=== PATIENT | male | born 1950 | race Caucasian/White ===

== ENCOUNTER 2021-07-05 17:42 | Inpatient (IN) | payer OTHER ==
--- OUTSIDE RECORDS SUMMARY | 2021-07-05 17:45 | XMS REPORT | Continuity of Care Document ---
:1950 Author Organization [facility] t Address [address] [place] [address] Care Team Providers Name Role Phone Unavailable Unavailable Unavailable Payers Payer Name Policy Type Policy Number Effective Date Expiration Date S ource Problems This patient has no known problems. Allergies, Adverse Reactions, Alerts Allergy Allergy Status Severity Reaction(s) Onset Inactive Treating Comm ents Source Name Type Date Date Clinician dexameth DA Active U 2018-06 [facility] 0-12 00:00: [address] STEROIDS DA Active U 2018-06 [facility] 0-11 00:00: [address] Medications This patient has no known medications. Procedures This patient has no known procedures. Results Test Description Test Time Test Comments Results Result Comments Source BASIC METABOLIC PANEL 2019-04-01 08:27:00 Test Item Value Reference Range Interpretation Comme nts SODIUM (test code = NA) 138 MMOL/L 137-145 N POTASSIUM (test code = K) 4.6 MMOL/L 3.5-5.1 N CHLORIDE (test code = CL) 102 MMOL/L 98-107 N CARBON DIOXIDE (test code = CO2) 27 MMOL/L 22-30 N GLUCOSE (test code = GLU) 157 MG/DL 74-106 H BLOOD UREA NITROGEN (test code = 20 MG/DL 9-20 N BUN) GLOMERULAR FILTRATION RATE (test 60 Reporting units: ml/min/1.73 code = GFR) m2 (Modified M DRD Formula)Referen ce Range: > or = 60 ml/min/1.7 3 m2 CREATININE (test code = CREAT) 1.20 MG/DL 0.66-1.25 N CALCIUM (test code = CA) 9.8 MG/DL 8.4-10.2 N LIPID PROFILE (CORONARY RISK)2019-04-01 08:27:00 Test Item Value Reference Range Interpretation Comments TRIGLYCERIDES (test 216 MG/DL TRIGLYCE RIDES code = TRIG) REFERENCE RANGE:Normal: < 150 mg/dLBorderline High: 150-199 mg/dLHi gh: 200-499 mg/dLVe ry High: >=500 mg/ dL CHOLESTEROL (test code 169 MG/DL <200 = CHOL) HDL CHOLESTEROL (test 27 MG/DL 40-59 L code = HDL) LIPOPROTEIN LDL (test 119 MG/DL 0-99 H code = LDL) OPTIMAL........ .<100 mg/dLNEAR OPTIMAL/ABOVE OPTIMAL........ .100-12 9 mg/dL BORDERLINE HIGH.........13 0-159 mg/dL HIGH.........16 0-189 mg/dL VERY HIGH...... ...>/= 190 mg/dL [id number] 08:27:00 Test Item Value Reference Range Interpretation Comments MAGNESIUM (test code = MAG) 2.1 MG/DL 1.6-2.3 N PROTHROMBIN [id number] 08:20:00 Test Item Value Reference Range Interpretation Comments PROTHROMBIN TIME 10.9 SECONDS 9.6-11.6 N PATIENT (test code = PTP) INTERNATIONAL NORMAL 1.0 0.8-1.1 N The INR is to be RATIO (test code = used only for INR) monitoring oral anticoagulantth erap y. INDICATION I NR VALUE ---- ---- ---- -------1. Prophylaxis, de ep venous thrombos is, including hig h risk surgery. 2.0 - 3.0 2. Prophylaxis, de ep venous thrombos is, hip surgery, treatment for d eep venous thrombosis or pulmonary prevention of systemic emboli sm in patients wit h valvular heart disease, atrial fibrillation, tissue heart va lve, or acute myocar dial infarction. 2.0 - 3 .0 3. Mechanical prosthesis hear t valves, recurrent syste rica embolism. 3.0 - 4.5 PTT [id number] 08:20:00 Test Item Value Reference Range Interpretation Comments PTT ACTIVATED (test code = APTT) 26.8 SECONDS 22.0-33.0 N BASIC METABOLIC [id number] 08:16:00 Test Item Value Reference Range Interpretation Comments SODIUM (test code = 138 MMOL/L 137-145 N NA) POTASSIUM (test code = 4.6 MMOL/L 3.5-5.1 N K) CHLORIDE (test code = 102 MMOL/L 98-107 N CL) CARBON DIOXIDE (test 27 MMOL/L 22-30 N code = CO2) GLUCOSE (test code = 157 MG/DL 74-106 H GLU) BLOOD UREA NITROGEN 20 MG/DL 9-20 N (test code = BUN) GLOMERULAR FILTRATION 60 Report ing units: RATE (test code = GFR) ml/mi n/1.73 m2 (Modified MDRD Formula)Referen ce Range: > or = 6 0 ml/min/1.73 m2 CREATININE (test code 1.20 MG/DL 0.66-1.25 N = CREAT) CALCIUM (test code = 9.8 MG/DL 8.4-10.2 N CA) LIPID PROFILE (CORONARY RISK)2019-04-01 08:16:00 Test Item Value Reference Range Interpretation Comments TRIGLYCERIDES (test 216 MG/DL TRIGLYCE RIDES code = TRIG) REFERENCE RANGE:Normal: < 150 mg/dLBorderline High: 150-199 mg/dLHi gh: 200-499 mg/dLVe ry High: >=500 mg/ dL CHOLESTEROL (test code 169 MG/DL <200 = CHOL) HDL CHOLESTEROL (test 27 MG/DL 40-59 L code = HDL) LIPOPROTEIN LDL (test MG/DL 0-99 code = LDL) [id number] 08:16:00 Test Item Value Reference Range Interpretation Comments MAGNESIUM (test code = MAG) 2.1 MG/DL 1.6-2.3 N BASIC METABOLIC [id number] 08:15:00 Test Item Value Reference Range Interpretation Comments SODIUM (test code = 138 MMOL/L 137-145 N NA) POTASSIUM (test code = 4.6 MMOL/L 3.5-5.1 N K) CHLORIDE (test code = 102 MMOL/L 98-107 N CL) CARBON DIOXIDE (test 27 MMOL/L 22-30 N code = CO2) GLUCOSE (test code = 157 MG/DL 74-106 H GLU) BLOOD UREA NITROGEN 20 MG/DL 9-20 N (test code = BUN) GLOMERULAR FILTRATION 60 Report ing units: RATE (test code = GFR) ml/mi n/1.73 m2 (Modified MDRD Formula)Referen ce Range: > or = 6 0 ml/min/1.73 m2 CREATININE (test code 1.20 MG/DL 0.66-1.25 N = CREAT) CALCIUM (test code = 9.8 MG/DL 8.4-10.2 N CA) LIPID PROFILE (CORONARY RISK)2019-04-01 08:15:00 Test Item Value Reference Range Interpretation Comments TRIGLYCERIDES (test 216 MG/DL TRIGLYCE RIDES code = TRIG) REFERENCE RANGE:Normal: < 150 mg/dLBorderline High: 150-199 mg/dLHi gh: 200-499 mg/dLVe ry High: >=500 mg/ dL CHOLESTEROL (test code 169 MG/DL <200 = CHOL) HDL CHOLESTEROL (test MG/DL 40-59 code = HDL) LIPOPROTEIN LDL (test MG/DL 0-99 code = LDL) [id number] 08:15:00 Test Item Value Reference Range Interpretation Comments MAGNESIUM (test code = MAG) MG/DL 1.6-2.3 BASIC METABOLIC [id number] 08:14:00 Test Item Value Reference Range Interpretation Comments SODIUM (test code = NA) 138 MMOL/L 137-145 N POTASSIUM (test code = K) 4.6 MMOL/L 3.5-5.1 N CHLORIDE (test code = CL) 102 MMOL/L 98-107 N CARBON DIOXIDE (test code = CO2) MMOL/L 22-30 GLUCOSE (test code = GLU) MG/DL 74-106 BLOOD UREA NITROGEN (test code = MG/DL 9-20 BUN) GLOMERULAR FILTRATION RATE (test code = GFR) CREATININE (test code = CREAT) MG/DL 0.66-1.25 CALCIUM (test code = CA) MG/DL 8.7-9.7 LIPID PROFILE (CORONARY RISK)2019-04-01 08:14:00 Test Item Value Reference Range Interpretation Comments TRIGLYCERIDES (test code = TRIG) MG/DL CHOLESTEROL (test code = CHOL) 169 MG/DL <200 HDL CHOLESTEROL (test code = HDL) MG/DL 40-59 LIPOPROTEIN LDL (test code = LDL) MG/DL 0-99 [id number] 08:14:00 Test Item Value Reference Range Interpretation Comments MAGNESIUM (test code = MAG) MG/DL 1.6-2.3 CBC W/AUTO [id number] 08:08:00 Test Item Value Reference Range Interpretation Comments WHITE BLOOD CELL (test code = 7.7 K/MM3 3.8-9.8 N WBC) RED BLOOD CELL (test code = 5.18 M/MM3 3.95-5.67 N RBC) HEMOGLOBIN (test code = HGB) 15.1 G/DL 12.4-16.7 N HEMATOCRIT (test code = HCT) 44.6 % 35.9-49.5 N MEAN CELL VOLUME (test code = 86 fL 81.7-96.1 N MCV) MEAN CELL HGB (test code = MCH) 29.2 pg 27.6-33.2 N MEAN CELL HGB CONCETRATION 33.9 % 32.9-35.5 N (test code = MCHC) RED CELL DISTRIBUTION WIDTH 13.0 % 12.1-15.2 N (test code = RDW) PLATELET COUNT (test code = 172 K/MM3 129-368 N PLT) MEAN PLATELET VOLUME (test code 11.1 fl 7.4-10.4 H = MPV) NEUTROPHIL % (test code = NT%) 72.5 % 43-75 N IMMATURE GRANULOCYTE % (test 0.4 % 0.0-2.0 N code = IG%) LYMPHOCYTE % (test code = LY%) 14.5 % 14-44 N MONOCYTE % (test code = MO%) 8.9 % 4-13 N EOSINOPHIL % (test code = EO%) 3.4 % 0-6 N BASOPHIL % (test code = BA%) 0.3 % 0-2 N NUCLEATED RBC % (test code = 0.0 % 0-1.0 N NRBC%) NEUTROPHIL # (test code = NT#) 5.62 K/mm3 2.0-7.6 N IMMATURE GRANULOCYTE # (test 0.03 x10 3/uL 0-0.03 N code = IG#) LYMPHOCYTE # (test code = LY#) 1.12 K/mm3 1.0-3.8 N MONOCYTE # (test code = MO#) 0.69 K/mm3 0.1-0.8 N EOSINOPHIL # (test code = EO#) 0.26 K/mm3 0.0-0.2 H BASOPHIL # (test code = BA#) 0.02 K/mm3 0.0-0.2 N NUCLEATED RBC # (test code = 0.00 K/mm3 0.0-0.1 N NRBC#)
[2021-07-05 18:39] LABS: Protime INR 0.99
[2021-07-05 18:43] LABS: Absolute Lymphocytes (CBC) 1.4 K/uL (0.7-4.9); Hematocrit 47.3 % (39.6-49.0); MPV 10.1 fL (7.6-11.3); RBC Red Blood Cell Count 5.74 M/uL (4.33-5.43)
[2021-07-05] MEDS ORDERED: METHYLPREDNISOLONE 125 MG INJ ONE (18:45)
[2021-07-05] MEDS ORDERED: FUROSEMIDE 20 MG/ 2ML VIAL ONE ×2 (18:45→19:41)
[2021-07-05] MEDS ORDERED: LEVALBUTEROL 1.25 MG/3 ML NEB ONE (18:45)
[2021-07-05] MEDS ORDERED: IPRATROPIUM BROM 0.5MG/2.5ML ONE (18:45)
[2021-07-05] MEDS ORDERED: NA CHLORIDE 0.9% 1,000 ML ONE (18:46)
[2021-07-05 19:00] LABS: Potassium 3.7 mmol/L (3.5-5.1)
[2021-07-05 19:04] LABS: Troponin High Sensitivity 120.3 pg/mL (<58.9)
[2021-07-05] MEDS ORDERED: ACETAMINOPHEN 500 MG TAB PO PRN (21:19)
[2021-07-05] MEDS ORDERED: ONDANSETRON 4 MG/2 ML VIAL IV PRN (21:19)
[2021-07-05] MEDS: INSULIN -REGULAR HUMAN 50 UNIT/0.5 ML ML SQ SCH (21:19)
[2021-07-05] MEDS ORDERED: INSULIN -REGULAR HUMAN 50 UNIT/0.5 ML ML ONE (21:58)
--- NOTE | 2021-07-05 22:14 | RAD REPORT ---
EXAM DESCRIPTION: RAD - Chest Single View - 07/05/2021 10:03 pm CLINICAL HISTORY: sob COMPARISON: No comparisonsNo comparisons FINDINGS: Lines: None. Lungs: Diffuse prominence of the pulmonary interstitium with alveolar airspace disease. Pleural: No significant pleural effusions or pneumothorax. Cardiac: Cardiomegaly. Sternotomy. Bones: No acute fractures. Other: IMPRESSION: Findings most consistent with moderate interstitial edema/congestive heart failure.
[2021-07-05] MEDS ORDERED: HYDRALAZINE HCL 20 MG/ML VIAL IV PRN (22:36)
--- NOTE | 2021-07-05 22:40 | P.HP ---
Certification for Inpatient Patient admitted to: Inpatient With expected LOS: <2 Midnights Patient will require the following post-hospital care: None Practitioner: I am a practitioner with admitting privileges, knowledge of patient current condition, hospital course, and medical plan of care. Services: Services provided to patient in accordance with Admission requirements found in Title 42 Section 412.3 of the Code of Federal Regulations Patient History Date of Service: 07/05/21 Reason for admission: CHF exacerbation History of Present Illness: Mr. Calabrese is a 70 yo M with CAD,HTN, HLD, DM who presents with a few weeks of SOB and AVALOS. He also reports orthopena and PND. Past two nights he has had to sleep sitting up in his recliner. He denies chest pain. WBC 11.5 BUN 23 Cr 1.34 GFR 53 Glu 230 troponin 120.30 BNP 8434 IMPRESSION: Findings most consistent with moderate interstitial edema/congestive heart failure. Allergies No Known Drug Allergies Allergy (Verified 07/05/21 18:11) Rash - Past Medical/Surgical History Diabetic: Yes -: HTN -: DM -: HLD -: CAD -: gout -: CABG -: bilateral knee surgery -: back surgery - Family History Family History: Reviewed- Non-Contributory - Social History Smoking Status: Current every day smoker Alcohol use: Yes CD- Drugs: No Caffeine use: Yes Place of Residence: Home Review of Systems 10-point ROS is otherwise unremarkable General: Unremarkable Eyes: Unremarkable ENT: Unremarkable Respiratory: Shortness of Breath, SOB with Excertion Cardiovascular: Orthopnea, Paroxysmal Noc. Dyspnea, As per HPI Gastrointestinal: Unremarkable Genitourinary: Unremarkable Musculoskeletal: Unremarkable Integumentary: Unremarkable Neurological: Unremarkable Lymphatics: Unremarkable Physical Examination - Physical Exam General: Alert, In no apparent distress HEENT: Atraumatic, PERRLA, Mucous membr. moist/pink, EOMI, Sclerae nonicteric Neck: Supple, 2+ carotid pulse no bruit, No LAD, Without JVD or thyroid abnormality Respiratory: Diminished, Crackles/rales Cardiovascular: Regular rate/rhythm, Normal S1 S2 Gastrointestinal: Normal bowel sounds, No tenderness Musculoskeletal: No tenderness Integumentary: No rashes Neurological: Normal speech, Normal strength at 5/5 x4 extr, Normal tone, Normal affect Lymphatics: No axilla or inguinal lymphadenopathy - Studies Laboratory Data (last 24 hrs) 07/05/21 18:20: Sodium 140, Potassium 3.7, BUN 23 H, Creatinine 1.34 H, Glucose 231 H, Lipase 218 07/05/21 18:20: PT 11.4, INR 0.99, APTT 25.7 07/05/21 18:20: WBC 11.50 H, Hgb 15.4, Hct 47.3, Plt Count 195 Assessment and Plan - Problems (Diagnosis) (1) CHF exacerbation Current Visit: Yes Status: Acute Qualifiers: Heart failure type: unspecified Qualified Code(s): I50.9 - Heart failure, unspecified (2) HTN (hypertension) Current Visit: Yes Status: Chronic Qualifiers: Hypertension type: primary hypertension Qualified Code(s): I10 - Essential (primary) hypertension (3) HLD (hyperlipidemia) Current Visit: Yes Status: Chronic Qualifiers: Hyperlipidemia type: unspecified Qualified Code(s): E78.5 - Hyperlipidemia, unspecified (4) T2DM (type 2 diabetes mellitus) Current Visit: Yes Status: Chronic Qualifiers: Diabetes mellitus medical terminologist insulin use: with nursing home use Diabetes mellitus complication status: with kidney complications Chronic kidney disease stage: stage 3 (moderate) Chronic kidney disease stage 3 subtype: stage 3a (GFR 45-59) (5) Gout Current Visit: Yes Status: Chronic Qualifiers: Gout site: unspecified site Gout etiology: unspecified cause Chronicity: chronic Presence of tophus: without tophus Qualified Code(s): M1A.9XX0 - Chronic gout, unspecified, without tophus (tophi) (6) CAD (coronary artery disease) Current Visit: Yes Status: Chronic Qualifiers: Coronary Disease-Associated Artery/Lesion type: bypass graft [place] vs. transplanted heart: [place] heart Associated angina: without angina Qualified Code(s): I25.810 - Atherosclerosis of coronary artery bypass graft(s) without angina pectoris - Plan cardiology consulted on tele, trend troponins, repeat EKG ECHO pending continue IV lasix daily weights, O2 as needed, low sodium diet sliding scale insulin and accuchecks, A1c pending reconcile and continue home medications DVT ppx Discharge Plan: Home Plan to discharge in: 48 Hours - Advance Directives Does patient have a Living Will: No Does patient have a Durable POA for Healthcare: No - Code Status/Comfort Care Code Status Assessed: Yes (full code ) Critical Care: No Time Spent Managing Pts Care (In Minutes): 70
[2021-07-06 03:47] LABS: Absolute Lymphocytes (CBC) 0.7 K/uL (0.7-4.9); Hematocrit 46.2 % (39.6-49.0); Lymphocytes % 6.4 % (15.3-44.8); MPV 9.9 fL (7.6-11.3); RBC Red Blood Cell Count 5.57 M/uL (4.33-5.43)
[2021-07-06 04:11] LABS: Albumin 3.5 g/dL (3.4-5.0); Bilirubin Total 0.6 mg/dL (0.2-1.0); Magnesium 2.1 mg/dL (1.8-2.4); Phosphorus 2.9 mg/dL (2.5-4.9); Potassium 3.9 mmol/L (3.5-5.1); Thyroid Stimulating Hormone 0.062 uIU/mL (0.360-3.740)
[2021-07-06] MEDS ORDERED: HYDRALAZINE HCL 20 MG/ML VIAL ONE ×2 (05:10→08:28)
[2021-07-06] MEDS ORDERED: cloNIDine HCL 0.1 MG TAB PO ONE (07:39)
[2021-07-06] MEDS ORDERED: cloNIDine HCL 0.1 MG TAB ONE (07:41)
[2021-07-06] MEDS: INSULIN -REGULAR HUMAN 50 UNIT/0.5 ML ML SQ SCH ×4 (08:00→20:47)
[2021-07-06] MEDS ORDERED: FUROSEMIDE 40 MG/4 ML VIAL ONE ×2 (08:28→17:04)
[2021-07-06] MEDS ORDERED: INSULIN -REGULAR HUMAN 50 UNIT/0.5 ML ML ONE ×4 (08:30→20:35)
[2021-07-06] MEDS ORDERED: ENOXAPARIN 40 MG/0.4 ML SQ ONE (08:30)
[2021-07-06] MEDS: HYDRALAZINE HCL 20 MG/ML VIAL IV PRN (08:30)
[2021-07-06] MEDS ORDERED: METOPROLOL TAR 50 MG TAB PO ONE (08:59)
[2021-07-06] MEDS: FUROSEMIDE 40 MG/4 ML VIAL IV SCH ×2 (09:00→17:00)
[2021-07-06] MEDS ORDERED: ENOXAPARIN 40 MG/0.4 ML SQ SCH (09:00)
[2021-07-06] MEDS ORDERED: METOPROLOL TAR 50 MG TAB ONE ×2 (09:35→20:34)
[2021-07-06] MEDS ORDERED: INFLUENZA VACCINE (for 6+ mo) 0.5 ML DOSE IMVAC ONE (14:00)
--- NOTE | 2021-07-06 15:33 | CON ---
Date of Consultation: 07/06/2021 Reason For Consultation: CHF exacerbation. History Of Present Illness: This is a 70-year-old male with history of coronary artery disease statu s post single-vessel bypass in 2016, hypertension, dyslipidemia, diabetes, presented with progressive shortness of breath on minimal exertion and became at rest along with orthopnea and lower extremity edema. Denies having any chest pain. There is no nausea or vomiting. He follows up with cardiologi st elsewhere. After diuresis with Lasix, he is feeling slightly better already. Past Medical History: As outlined above in HPI. Medications: Refer to reconciliation sheet for detailed list. Allergies: NO KNOWN DRUG ALLERGIES. Past Surgical History: Coronary artery bypass, single-vessel in 2016. Family History: No premature coronary artery disease or cancer. Social History: He is an active smoker. Does not drink or use any drugs. Review of Systems: All systems were reviewed and they were negative except as mentioned in HPI. Physical Examination: Vital Signs: Temperature is 97.6, pulse 96, breathing at 18, blood pressure is 169/95, saturating 96 %. General: A pleasant elderly male, in no apparent distress. Head and Neck: Pupils are equal and reactive to light. Intact eye movements. Mild JVD elevation. No cervical lymphadenopathy. Neck: Supple. Thyroid is not enlarged. Lungs: Crackles in both bases. Slight increased respiratory efforts. Heart: Irregular with no extra sounds. Abdomen: Soft, nontender. Bowel sounds positive. No organomegaly. No masses or hernia. No rigidi ty or tenderness. Extremities: 3+ pedal edema bilaterally. No clubbing, cyanosis. Intact pulses. Skin: No rash was noted. Neurologic: Alert, awake. No acute focal deficits appreciated. Investigations: His hemoglobin 5.7. His troponin is 117, highly sensitive troponin. Creatinine is 1.4. NT-proBNP is 8434. Assessment And Recommendation: 1.Acute congestive heart failure exacerbation. Recommend IV Lasix 40 mg q.12 hours. Monitor BUN, c reatinine, electrolytes, and continue to trend troponin and please obtain echocardiogram. 2.Coronary artery disease, single-vessel bypass, now with heart failure. Obtain echo to see if ther e is any wall motion abnormalities and the patient has slightly elevated troponin which could be due to demand. If the echo showing any wall motion abnormalities, then ischemic workup will be warranted and we will plan for coronary angiogram at that time. 3.Hypertension. Please use his home medication to get his blood pressure under control and to reduc e the cardiac afterload. SR/MODL Voice ID: [id number] Report ID: [id number]
[2021-07-06] MEDS: METOPROLOL TAR 25 MG TAB PO SCH (18:00)
[2021-07-06] MEDS ORDERED: ENOXAPARIN 100 MG/ML SYR SQ ONE (20:34)
[2021-07-06] MEDS ORDERED: ENOXAPARIN 100 MG/ML SYR SQ SCH (21:00)
--- NOTE | 2021-07-06 22:51 | ER ---
Nurse's Notes [facility] Name: Balbir Calabrese Age: 70 yrs Sex: Male : 1950 Arrival Date: 07/05/2021 Time: 21:31 Bed 5 Private MD: Diagnosis: Acute on chronic combined systolic (congestive) and diastolic (congestive) heart failure Presentation: 07/05 18:00 Acuity: ARY 3 iw ED Course: 21:31 Patient arrived in ED. 21:34 Hari Borrego MD is Attending Physician. 7 21:38 Rosalba Pak MD is Hospitalizing Provider. 22:53 Imani Harvey, RN is Primary Nurse. 07/06 03:58 CORONAVIRUS Sent. kj1 07:36 Triage completed. iw 09:48 Changed dressing on right antecubital ;shaved the area. mb4 09:48 Verbal reassurance given. Assisted with dressing. mb4 Administered Medications: No medications were administered Outcome: 07/05 21:38 Decision to Hospitalize by Provider. 07/06 22:51 Patient left the ED. mw2 Signatures: Imani Harvey, RN RN Marielle Calabrese, RN RN Mamie Willis mw2 Libby Robles mb4 Maggy Harrison kj1 Gautam Tabares MD MD 7 Vinita Roach
[2021-07-06 23:12] VITALS: BMI 33.0
--- NOTE | 2021-07-06 23:54 | P.PN ---
Date of Service: 07/06/21 Subjective Patient's blood pressure is better controlled. Patient's heart rate is improved Physical Examination - Physical Exam General: Alert, In no apparent distress Respiratory: Diminished, Crackles/rales Cardiovascular: Regular rate/rhythm, Normal S1 S2 Gastrointestinal: Normal bowel sounds, No tenderness Neurological: Normal speech, Normal strength at 5/5 x4 extr, Normal tone, Normal affect Assessment and Plan - Problems (Diagnosis) (1) CHF exacerbation Current Visit: Yes Status: Acute Qualifiers: Heart failure type: unspecified Qualified Code(s): I50.9 - Heart failure, unspecified (2) HTN (hypertension) Current Visit: Yes Status: Chronic Qualifiers: Hypertension type: primary hypertension Qualified Code(s): I10 - Essential (primary) hypertension (3) HLD (hyperlipidemia) Current Visit: Yes Status: Chronic Qualifiers: Hyperlipidemia type: unspecified Qualified Code(s): E78.5 - Hyperlipidemia, unspecified (4) T2DM (type 2 diabetes mellitus) Current Visit: Yes Status: Chronic Qualifiers: Diabetes mellitus retirement insulin use: with retirement use Diabetes mellitus complication status: with kidney complications Chronic kidney disease stage: stage 3 (moderate) Chronic kidney disease stage 3 subtype: stage 3a (GFR 45-59) (5) Gout Current Visit: Yes Status: Chronic Qualifiers: Gout site: unspecified site Gout etiology: unspecified cause Chronicity: chronic Presence of tophus: without tophus Qualified Code(s): M1A.9XX0 - Chronic gout, unspecified, without tophus (tophi) (6) CAD (coronary artery disease) Current Visit: Yes Status: Chronic Qualifiers: Coronary Disease-Associated Artery/Lesion type: bypass graft [place] vs. transplanted heart: [place] heart Associated angina: without angina Qualified Code(s): I25.810 - Atherosclerosis of coronary artery bypass graft(s) without angina pectoris - Plan cardiology consulted on tele, trend troponins, repeat EKG ECHO pending continue IV lasix daily weights, O2 as needed, low sodium diet sliding scale insulin and accuchecks, A1c pending reconcile and continue home medications DVT ppx
[2021-07-07] MEDS: METOPROLOL TAR 25 MG TAB PO SCH (05:04)
[2021-07-07] MEDS: INSULIN -REGULAR HUMAN 50 UNIT/0.5 ML ML SQ SCH ×3 (08:33→15:56)
[2021-07-07] MEDS: FUROSEMIDE 40 MG/4 ML VIAL IV SCH (08:34)
[2021-07-07] MEDS ORDERED: APIXABAN 5 MG TABLET PO SCH (09:00)
[2021-07-07] MEDS ORDERED: SERTRALINE HCL 50 MG TAB PO SCH (09:00)
[2021-07-07] MEDS ORDERED: allopurinoL 100 MG TAB PO SCH (09:00)
[2021-07-07] MEDS ORDERED: ASPIRIN EC 81 MG TAB PO SCH (09:00)
--- NOTE | 2021-07-07 09:19 | RAD REPORT ---
EXAM DESCRIPTION: RAD - Chest Single View - 07/07/2021 9:03 am CLINICAL HISTORY: follow up CHF COMPARISON: Chest Single View dated 07/05/2021 FINDINGS: Lines: None. Lungs: No evidence of edema or pneumonia. Improved aeration compared with 07/05/2021. Pleural: No significant pleural effusions or pneumothorax. Cardiac: Cardiomegaly. Bones: No acute fractures. Sternotomy. Other: IMPRESSION: Edema has improved since 07/05/2021.
--- NOTE | 2021-07-07 09:37 | RAD REPORT ---
EXAM DESCRIPTION: CT - Head Brain Wo Cont - 07/07/2021 9:17 am CLINICAL HISTORY: dizziness COMPARISON: No comparisons TECHNIQUE: All CT scans are performed using dose optimization technique as appropriate and may inclu de automated exposure control or mA/KV adjustment according to patient size. FINDINGS: No intracranial hemorrhage, hydrocephalus or extra-axial fluid collection.No areas of brai n edema or evidence of midline shift. Trace left mastoid fluid. The calvarium is intact. Chronic small vessel ischemic changes. IMPRESSION: No acute intracranial abnormality.
[2021-07-07 09:40] VITALS: O2SAT 98
[2021-07-07] MEDS: HYDRALAZINE HCL 20 MG/ML VIAL IV PRN (11:58)
--- NOTE | 2021-07-07 13:55 | P.DS ---
Admission Date: 07/05/21 Discharge Date: 07/07/21 Primary Care Provider: Dr. Brooke Zazueta; Cardiology-Dr. Begum Disposition: DC HOME/HOME HEALTH CARE Discharge Condition: GOOD Reason for Admission: CHF exacerbation Consultations: Cardiology-Dr. Schneider Procedures: COVID: Negative Initial CXR: COMPARISON: No comparisonsNo comparisons FINDINGS: Lines: None. Lungs: Diffuse prominence of the pulmonary interstitium with alveolar airspace disease. Pleural: No significant pleural effusions or pneumothorax. Cardiac: Cardiomegaly. Sternotomy. Bones: No acute fractures. IMPRESSION: Findings most consistent with moderate interstitial edema/congestive heart failure. Follow up CXR: COMPARISON: Chest Single View dated 07/05/2021 FINDINGS: Lines: None. Lungs: No evidence of edema or pneumonia. Improved aeration compared with 07/05/2021. Pleural: No significant pleural effusions or pneumothorax. Cardiac: Cardiomegaly. Bones: No acute fractures. Sternotomy. IMPRESSION: Edema has improved since 07/05/2021. CT Head: COMPARISON: No comparisons TECHNIQUE: All CT scans are performed using dose optimization technique as appropriate and may include automated exposure control or mA/KV adjustment according to patient size. FINDINGS: No intracranial hemorrhage, hydrocephalus or extra-axial fluid collection.No areas of brain edema or evidence of midline shift. Trace left mastoid fluid. The calvarium is intact. Chronic small vessel ischemic changes. IMPRESSION: No acute intracranial abnormality. Medical Problem List: Dyspnea secondary to acute on chronic diastolic CHF Atrial fibrillation Elevated troponin likely ischemic demand related to CHF Hypertension Diabetes mellitus type 2 Chronic renal disease stage III Dizziness Depression BPH Brief History of Present Illness: 89-year-old male with history of CAD, prior CABG, hypertension, diabetes mellitus. Patient reported increasing shortness of breath and orthopnea. Patient found to have acute CHF. Patient was admitted for treatment. Hospital Course: Patient presented with dyspnea secondary to acute on chronic diastolic CHF. Patient also found to have atrial fibrillation. Patient was admitted for treatment. Patient received IV diuretic therapy with improvement. Medication adjusted. Metoprolol was increased for better rate control. Patient converted to normal sinus rhythm. Patient seen and evaluated by cardiology. No further intervention required. Patient has done well with diuresis. Patient with history of CAD and prior CABG, hypertension and diabetes. At discharge patient without significant shortness of breath. Patient no longer on oxygen. At discharge patient will continue with a 1500 cc/day fluid restriction and low- salt diet. Recommend to monitor his weight daily. Recommend to continue Lasix 40 mg 1 pill twice daily. If his weight increases by more than 5 pounds further adjustment may be required. As he improves the Lasix can be decreased as well. This can be done with the help of his patient financial counselor or his PCP. Recommend to recheck labBMP in 1 week to monitor his progress. Recommend follow-up with PCP in 1 week to follow-up this hospitalization. Recommend follow-up with cardiology in 1 week to follow-up his hospitalization as well. As mentioned above patient had atrial fibrillation. This improved with better rate control. Patient now in normal sinus rhythm. Metoprolol was adjusted. Patient now on anticoagulation therapy. Cardiology recommends to continue metoprolol 50 mg 1 pill twice daily. Patient will also continue with Eliquis 5 mg 1 pill twice daily for chronic anticoagulation therapy. Education on atrial fibrillation, Eliquis provided. Recommend follow-up with cardiology in 1 week to follow-up his hospitalization. Patient with hypertension. Medications have been adjusted for better blood pressure control. At discharge the patient will continue with metoprolol 50 mg 1 pill twice daily. Recommend to maintain blood pressure less than 130/80. Further testing can be done by his PCP. Patient with diabetes mellitus type 2. Overall stable. At discharge patient will continue with his insulin regimen of Lantus 38 units subcu daily. Recommend to monitor blood sugars at least twice daily. Recommend to maintain blood sugar less than 140 fasting and less than 200 after meals. Further dosing can be done by his PCP. Recommend to recheck hemoglobin A1c every 3 months to monitor his progress. Recommend follow-up with PCP to further monitor and address. Patient with depression. At discharge patient will continue with Zoloft 25 mg daily. Patient with BPH. At discharge patient will continue with Flomax 0.4 mg daily. Patient with history of CAD and prior CABG. At discharge patient will continue with aspirin 81 mg daily. As noted above patient will also be on Eliquis. Monitor for any bleeding. Education on Eliquis provided. Fall precautions in place. CT head performed due to dizziness. CT head unremarkable. Patient was seen by neurology. No further intervention required. No need for further intervention at this time. Recommend to discontinue muscle relaxers as this may be contributing to his dizziness. Vital Signs/Physical Exam: Temp Pulse Resp BP Pulse Ox 95 F L 46 L 19 145/83 H 97 07/07/21 08:00 07/07/21 08:00 07/07/21 08:00 07/07/21 08:00 07/07/21 08:00 General: Alert, In no apparent distress, Oriented x3, Cooperative HEENT: Atraumatic Neck: Supple Respiratory: Clear to auscultation bilaterally, Normal air movement Cardiovascular: Normal pulses, Regular rate/rhythm Gastrointestinal: Normal bowel sounds, No tenderness, No masses, No rebound, No guarding Musculoskeletal: No erythema, No tenderness, No warmth Integumentary: No tenderness/swelling, No erythema, No warmth, No cyanosis Neurological: Normal speech, Normal strength at 5/5 x4 extr, Normal tone, Normal affect Laboratory Data at Discharge: WBC 11.20 K/uL (4.3-10.9) H 07/06/21 03:17 Hgb 15.1 g/dL (13.6-17.9) 07/06/21 03:17 Hct 46.2 % (39.6-49.0) 07/06/21 03:17 Plt Count 174 K/uL (152-406) 07/06/21 03:17 PT 11.4 SECONDS (9.5-12.5) 07/05/21 18:20 INR 0.99 07/05/21 18:20 APTT 25.7 SECONDS (24.3-36.9) 07/05/21 18:20 Sodium 139 mmol/L (136-145) 07/06/21 03:17 Potassium 3.9 mmol/L (3.5-5.1) 07/06/21 03:17 BUN 26 mg/dL (7-18) H 07/06/21 03:17 Creatinine 1.41 mg/dL (0.55-1.3) H 07/06/21 03:17 Glucose 260 mg/dL (74-106) H 07/06/21 03:17 Phosphorus 2.9 mg/dL (2.5-4.9) 07/06/21 03:17 Magnesium 2.1 mg/dL (1.8-2.4) 07/06/21 03:17 Total Bilirubin 0.6 mg/dL (0.2-1.0) 07/06/21 03:17 AST 27 U/L (15-37) 07/06/21 03:17 ALT 36 U/L (12-78) 07/06/21 03:17 Alkaline Phosphatase 93 U/L (45-117) 07/06/21 03:17 Triglycerides 86 mg/dL (<150) 07/06/21 03:17 Cholesterol 185 mg/dL (<200) 07/06/21 03:17 HDL Cholesterol 43 mg/dL (40-60) 07/06/21 03:17 Cholesterol/HDL Ratio 4.30 07/06/21 03:17 Lipase 218 U/L (73-393) 07/05/21 18:20 Home Medications: Aspirin [Aspirin EC 81 MG] 81 mg PO DAILY 07/06/21 Insulin Glargine,Hum.rec.anlog [Lantus] 38 unit SQ BEDTIME 07/06/21 Sertraline [Zoloft*] 25 mg PO DAILY 07/06/21 Tamsulosin [Flomax*] 0.4 mg PO BEDTIME 07/06/21 allopurinoL [Allopurinol] 100 mg PO DAILY 07/06/21 Apixaban [Eliquis] 5 mg PO BID #60 tablet 07/07/21 Furosemide [Lasix] 40 mg PO BIDL #60 tab 07/07/21 Metoprolol Tartrate 50 mg PO BID #60 tablet 07/07/21 New Medications: Apixaban [Eliquis] 5 mg PO BID #60 tablet Furosemide [Lasix] 40 mg PO BIDL #60 tab Metoprolol Tartrate 50 mg PO BID #60 tablet Physician Discharge Instructions: Patient presented with dyspnea secondary to acute on chronic diastolic CHF. Patient also found to have atrial fibrillation. Patient was admitted for treatment. Patient received IV diuretic therapy with improvement. Medication adjusted. Metoprolol was increased for better rate control. Patient converted to normal sinus rhythm. Patient seen and evaluated by cardiology. No further intervention required. Patient has done well with diuresis. Patient with history of CAD and prior CABG, hypertension and diabetes. At discharge patient without significant shortness of breath. Patient no longer on oxygen. At dis charge patient will continue with a 1500 cc/day fluid restriction and low-salt diet. Recommend to monitor his weight daily. Recommend to continue Lasix 40 mg 1 pill twice daily. If his weight increases by more than 5 pounds further adjustment may be required. As he improves the Lasix can be decreased as well. This can be done with the help of his patient financial counselor or his PCP. Recommend to recheck labBMP in 1 week to monitor his progress. Recommend follow-up with PCP in 1 week to follow-up this hospitalization. Recommend follow-up with cardiology in 1 week to follow-up his hospitalization as well. As mentioned above patient had atrial fibrillation. This improved with better rate control. Patient now in normal sinus rhythm. Metoprolol was adjusted. Patient now on anticoagulation therapy. Cardiology recommends to continue metoprolol 50 mg 1 pill twice daily. Patient will also continue with Eliquis 5 mg 1 pill twice daily for chronic anticoagulation therapy. Education on atrial fibrillation, Eliquis provided. Recommend follow-up with cardiology in 1 week to follow-up his hospitalization. Patient with hypertension. Medications have been adjusted for better blood pressure control. At discharge the patient will continue with metoprolol 50 mg 1 pill twice daily. Recommend to maintain blood pressure less than 130/80. Further testing can be done by his PCP. Patient with diabetes mellitus type 2. Overall stable. At discharge patient will continue with his insulin regimen of Lantus 38 units subcu daily. Recommend to monitor blood sugars at least twice daily. Recommend to maintain blood sugar less than 140 fasting and less than 200 after meals. Further dosing can be done by his PCP. Recommend to recheck hemoglobin A1c every 3 months to monitor his progress. Recommend follow-up with PCP to further monitor and address. Patient with depression. At discharge patient will continue with Zoloft 25 mg daily. Patient with BPH. At discharge patient will continue with Flomax 0.4 mg daily. Patient with history of CAD and prior CABG. At discharge patient will continue with aspirin 81 mg daily. As noted above patient will also be on Eliquis. Monitor for any bleeding. Education on Eliquis provided. Fall precautions in place. CT head performed due to dizziness. CT head unremarkable. Patient was seen by neurology. No further intervention required. No need for further intervention at this time. Recommend to discontinue muscle relaxers as this may be contributing to his dizziness. Diet: AHA Activity: Ad rosy Followup: Brooke Collier MD [Primary Care Provider] - Time spent managing pt's care (in minutes): 55
[2021-07-07] MEDS ORDERED: MECLIZINE HCL 12.5 MG TAB PO PRN (14:37)
[2021-07-07 15:51] LABS: Urine Appearance CLOUDY (Clear); Urine Bilirubin NEGATIVE (Negative); Urine Blood 3+ (Negative); Urine Color DK YELLOW (Yellow); Urine Glucose NEGATIVE (Negative); Urine Protein 1+ (Negative); Urine Specific Gravity 1.015 (1.005-1.030); Urine Urobilinogen 0.2 mg/dL (0.2-1.0); Urine pH 5.5 (5.0-7.0)
[2021-07-07 16:02] LABS: Urine Microscopic Reflex ORDER UMIC
[2021-07-07 16:43] LABS: Urine Amorphous Sediment 3+ /HPF (NONE SEEN); Urine Bacteria 20-50 /HPF (NONE SEEN); Urine Mucus 3+ /HPF (NONE SEEN); Urine RBC >50 /HPF (NONE SEEN)
[2021-07-07 17:21] VITALS: BP 144/74; TEMP 98.1
--- NOTE | 2021-07-07 20:30 | CON ---
Reason For Consultation: Consultation called by Dr. Brown because of vertigo. History Of Present Illness: Mr. Calabrese is a 70-year-old right-handed patient with ghotra ry artery disease, hypertension, dyslipidemia, diabetes mellitus, congestive heart failure, who comes to [facility] with shortness of breath and dyspnea on exertion, orthopnea, and nocturnal dy spnea. He had more difficulty sleeping at night, had to be upright due to his feeling of being smoth ered. The [facility] imaging did show moderate interstitial edema with congestive heart emily lure pattern, was treated with diuretics that had improved. Regarding his neurological consultation reason, the patient has had episodes of vertigo when turning sometimes to the left, the world seemed to go from left to right and when ambulating with such good vertigo, might tend to fall to the left s ruby. Also may become nauseated with a tendency to vomit. Episodes seemed to subside slightly, if he remains very still. He denies a history of stroke, seizures, or any head trauma with loss of consci ousness. He has had CT scan that showed chronic small-vessel ischemic changes without acute intracra nial abnormalities. Laboratory Studies: Showed a slightly elevated white blood cell count of 11.5 with 90% neutrophils. INR unremarkable. Chemistries showed glucose ranged from 123 to 240, otherwise, did have elevated t roponin's. Liver function studies normal. Creatinine 1.41. Hemoglobin A1c 6.4. His urinalysis vladislav ws greater than 50 red blood cells, white blood cells 5 to 10, bacteria 10 to 20, 3+ mucus, 3+ blood, trace esterase. COVID-19 testing is negative. Chest x-ray from today shows the edema has improved from 07/05 and this is where the CHF pattern was seen. He did receive Lasix 40 mg IV b.i.d., Eliquis 5 mg twice daily along with aspirin 80 mg daily, and meclizine 25 mg every 6 hours. He is also on F shira. The patient was to ambulate with physical therapy, however, not done at this point. He may also have the Melissa maneuver performed by Physical Therapy. Past Medical History: As noted including gout. Past Surgical History: Coronary artery bypass grafting, bilateral knee surgery, back surgery. Family History: Noncontributory. Allergies: NO KNOWN DRUG ALLERGIES. Social History: Patient smokes on a daily basis and drinks alcohol regularly, also caffeinated bever ages. Denies illegal drugs. Review of Systems: As noted, he has some vertigo and some occasional shortness of breath and easy fatigue and with ortho pnea, dyspnea on exertion as well, otherwise, negative 10 point systems review. Physical Examination: Vital Signs: Blood pressure 145/83, pulse 46 to 96, temperature 96.7, blood pressure 145/83, oxygen saturation 98% on room air. Weight 243 pounds. [place] 6 feet. BMI 33. Vital Signs: Mr. Calabrese is resting in bed. He is in no significant distress. HEENT: He is normocephalic, atraumatic. Sclerae appeared anicteric. Oropharynx is moist and pink. Neck: Supple. Chest: Clear. Abdomen: Soft and obese. Extremities: No significant edema or cyanosis. Neurological: No focal deficits. He is slightly slow to respond, but he is appropriate, otherwise. Cranial Nerves: His motor and sensory exam showed no focal deficits. His gait, he will be ambulated with physical therapy. Assessment: Mr. Calabrese is a 70-year-old patient with benign paroxysmal positional vertigo. He has multiple comorbid conditions as noted above. Plan: 1.To perform the Melissa maneuver as appropriate. 2.Meclizine 25 mg every 8 hours as needed. 3.Continue with aggressive management of his risk factors for stroke and myocardial infarction. 4.He will likely benefit from having Melissa maneuver as needed as done by Physical Therapy. 5.May be discharged to home and follow up in Dr. Brown' clinic 1 month later. BECCA/TIANA Voice ID: [id number] Report ID: [id number]
[2021-07-07] MEDS ORDERED: TAMSULOSIN 0.4 MG SR CAP PO SCH (21:00)
--- NOTE | 2021-07-08 08:26 | ECHO ---
HEIGHT: 6 ft 0 in WEIGHT: 243 lb 9.6 oz DATE OF STUDY: 07/07/[address]: Misael Mahan 2-DIMENSIONAL: YES M.MODE: YES DOPPLER: YES COLOR FLOW: YES TDS: PORTABLE: DEFINITY: BUBBLE STUDY: DIAGNOSIS: CONGESTIVE HEART FAILURE CARDIAC HISTORY: CATHERIZATION: SURGERY: PROSTHETIC VALVE: PACEMAKER: MEASUREMENTS (cm) DIASTOLIC (NORMALS) SYSTOLIC (NORMALS) IVSd 1.1 (0.6-1.2) LA Diam 4.0 (1.9-4.0) LVEF 32% LVIDd 5.6 (3.5-5.7) LVIDs 4.8 (2.0-3.5) %FS 15% LVPWd 1.1 (0.6-1.2) Ao Diam 3.4 (2.0-3.7) 2 DIMENSIONAL ASSESSMENT: RIGHT ATRIUM: NORMAL LEFT ATRIUM: ENLARGED RIGHT VENTRICLE: NORMAL LEFT VENTRICLE: DEPRESSED TRICUSPID VALVE: MILD TRICUSPID REGURGITATION MITRAL VALVE: MILD MITRAL REGURGITATION PULMONIC VALVE: NORMAL AORTIC VALVE: NORMAL PERICARDIAL EFFUSION: NONE AORTIC ROOT: NORMAL LEFT VENTRICULAR WALL MOTION: MODERATE GLOBAL HYPOKINESIS DOPPLER/COLOR FLOW: SEE BELOW COMMENTS: MODERATELY DEPRESSED LEFT VENTRICULAR EJECTION FRACTION AT 30-35%. MODERATE GLOBAL HYPOKINESIS. MILD MITRAL REGURGITATION. MILD TRICUSPID REGURGITATION. LEFT ATRIAL ENLARGEMENT. TECHNOLOGIST: CAROLYN GRAFF
--- NOTE | 2021-07-09 07:35 | EKG ---
Test Date: 2021-07-05 Test Time: 18:01:23 Computer Systems Software Engineer: TARA MEASUREMENT RESULTS: Intervals: Rate: 95 NH: 174 QRSD: 110 QT: 394 QTc: 495 [place]: P: 18 NH: 174 QRS: 126 T: 44 INTERPRETIVE STATEMENTS: Sinus rhythm with premature atrial complexes Right axis deviation Cannot rule out Anterior infarct, age undetermined Abnormal ECG No previous ECG available for comparison Electronically Signed On 07-09-21 07:27:08 DIPLOMATIC OFFICER by Thony Schneider
== END 2021-07-07 17:38 | disposition home or self-care (01) | DRG 291 ==
LOC: ER 17:42 → ERHOLD 21:29 → 2ND 07-06 20:46
PROVIDERS: ADMIT Hospitalist; ATTEND Physician Assistant
DX: I13.0 Hypertensive heart and chronic kidney disease with heart failure and stage 1 through stage 4 chronic kidney disease, or unspecified chronic kidney disease (principal); I50.33 Acute on chronic diastolic (congestive) heart failure; N39.0 Urinary tract infection, site not specified; I24.8 Other forms of acute ischemic heart disease; N18.31 Chronic kidney disease, stage 3a; E11.22 Type 2 diabetes mellitus with diabetic chronic kidney disease; E78.5 Hyperlipidemia, unspecified; M1A.9XX0 Chronic gout, unspecified, without tophus (tophi); I25.10 Atherosclerotic heart disease of native coronary artery without angina pectoris; H81.10 Benign paroxysmal vertigo, unspecified ear; I48.91 Unspecified atrial fibrillation; N40.0 Benign prostatic hyperplasia without lower urinary tract symptoms; Z79.4 Long term (current) use of insulin; Z95.1 Presence of aortocoronary bypass graft; Z20.822 Contact with and (suspected) exposure to COVID-19
CPT/HCPCS: 36415; 70450; 71045; 80048; 80053; 80061; 81003; 81015; 82947; 83036; 83690; 83735; 83880; 84100; 84439; 84443; 84484; 85025; 85610; 85730; 87040; 87086; 87088; 93005; 93306; 94760; 99283; J0360; J1650; J1940; J2405; J2930; J7030; J8597; U0003

== ENCOUNTER 2021-11-11 23:08 | Observation (INO) | payer OTHER ==
--- OUTSIDE RECORDS SUMMARY | 2021-11-11 23:11 | XMS REPORT | Continuity of Care Document ---
:1950 Author Organization [facility] t Address [address] [place] [address] Care Team Providers Name Role Phone ANTHONY_Brigida Attending Clinician Unavailable Helga Collier Attending Clinician [phone] ANTHONY_Brigida Admitting Clinician Unavailable Payers Payer Name Policy Type Policy Number Effective Date Expiration Date S ource MEDICARE [place]: [id number] 2015 [employer] 00:00:00 [place] [id number] 2015 00:00:00 Problems This patient has no known problems. Allergies, Adverse Reactions, Alerts Allergy Allergy Status Severity Reaction(s) Onset Inactive Treating Comm ents Source Name Type Date Date Clinician dexameth DA Active U 2018-06 [facility] asone 0-12 00:00: [address] STEROIDS DA Active U 2018-06 [facility] 0-11 00:00: [address] Medications This patient has no known medications. Procedures This patient has no known procedures. Encounters Start End Encounter Admission Attending Care Care Encounter Source Date/Time Date/Time Type Type Clinicians Facility Department ID 2021-10-17 2021-10-17 Outpatient JERMAN [facility] [id number] [place] 01:59:00 01:59:00 [id number] 2021-09-17 2021-09-17 Outpatient J[facility]MAN [facility] [id number] [place] 03:31:00 03:31:00 [facility] 2021-09-17 2021-09-17 Outpatient Brooke Collier [facility] [id number] 00:00:00 00:00:00 Helga [id number] 2021-06-11 2021-06-11 Outpatient KEFFER_A [facility] [id number] [place] 10:53:00 10:53:00 [facility] 2021-04-03 2021-04-03 Outpatient KEFFER_A [facility] [id number] [place] 03:14:00 03:14:00 [facility]14 [facility] 2021-04-03 2021-04-03 Outpatient Brooke Collier [facility] [id number] 00:00:00 00:00:00 Helga [id number] 2021-04-03 2021-04-03 Outpatient Brooke Collier [facility] [id number] 00:00:00 00:00:00 Helga [id number] 2020-12-25 2020-12-25 Outpatient KEFFER_A [facility] [id number] [place] 02:47:00 02:47:00 [id number] 2020-12-02 2020-12-02 Outpatient KEFFER_A [facility] [id number] [place] 05:55:00 05:55:00 614 [facility] 2020-11-28 2020-11-28 Outpatient KEFFER_A [facility] [id number] [place] 05:32:00 05:32:00 [id number] [facility] 2020-07-08 2020-07-08 Outpatient KEFFER_A [facility] [id number] [place] 02:16:00 02:16:00 118 [facility] 2020-07-08 2020-07-08 Outpatient Brooke Collier [facility] [id number] 00:00:00 00:00:00 Helga [id number] 2020-07-01 2020-07-01 Outpatient ANTHONY_Brigida [facility] [id number] [place] 04:37:00 04:37:00 111 [facility] 2020-07-01 2020-07-01 Outpatient Brooke Collier [facility] [id number] 00:00:00 00:00:00 Helga [id number] 2020-06-24 2020-06-24 Outpatient ANTHONY_Brigida [facility] [id number] [place] 05:53:00 05:53:00 104 [facility] 2020-06-20 2020-06-20 Outpatient ANTOHNY_Brigida [facility] [id number] [place] 08:29:00 08:29:00 231 [facility] Results Test Description Test Time Test Comments [...] 0-189 mg/dL VERY HIGH...... ...>/= 190 mg/dL [id number] 08:27:00 Test Item Value Reference Range Interpretation Comments MAGNESIUM (test code = MAG) 2.1 MG/DL 1.6-2.3 N PROTHROMBIN [id number] 08:20:00 Test Item Value Reference Range Interpretation [...] syste rica embolism. 3.0 - 4.5 PTT [id number] 08:20:00 Test Item Value Reference Range Interpretation Comments PTT ACTIVATED (test code = APTT) 26.8 SECONDS 22.0-33.0 N BASIC METABOLIC [id number] 08:16:00 Test Item Value Reference Range Interpretation [...] LDL (test MG/DL 0-99 code = LDL) [id number] 08:16:00 Test Item Value Reference Range Interpretation Comments MAGNESIUM (test code = MAG) 2.1 MG/DL 1.6-2.3 N BASIC METABOLIC [id number] 08:15:00 Test Item Value Reference Range Interpretation [...] LDL (test MG/DL 0-99 code = LDL) [id number] 08:15:00 Test Item Value Reference Range Interpretation Comments MAGNESIUM (test code = MAG) MG/DL 1.6-2.3 BASIC METABOLIC [id number] 08:14:00 Test Item Value Reference Range Interpretation [...] LDL (test code = LDL) MG/DL 0-99 [id number] 08:14:00 Test Item Value Reference Range Interpretation Comments MAGNESIUM (test code = MAG) MG/DL 1.6-2.3 CBC W/AUTO [id number] 08:08:00 Test Item Value Reference Range Interpretation [...]
[2021-11-12 00:23] LABS: Lymphocytes % 7.6 % (15.3-44.8); MPV 9.8 fL (7.6-11.3)
[2021-11-12 01:04] LABS: Potassium 3.3 mmol/L (3.5-5.1); Troponin High Sensitivity 23.4 pg/mL (<58.9)
--- NOTE | 2021-11-12 01:25 | EDPHYS ---
Physician Documentation [facility] Name: Balbir Calabrese Age: 71 yrs Sex: Male : 1950 Arrival Date: 11/11/2021 Time: 23:12 Bed 13 Private MD: ED Physician Carlos Power HPI: 11/12 01:26 This 71 yrs old Male presents to ER via EMS with complaints of CHF Exacerbation. kdr 01:26 The patient has shortness of breath at rest, with light activity. Onset: The kdr symptoms/episode began/occurred suddenly. Duration: The symptoms are continuous. The patient's shortness of breath is aggravated by nothing. Associated signs and symptoms: The patient has no apparent associated signs or symptoms. Severity of symptoms: At their worst the symptoms were moderate severe incapacitating. The patient has not experienced similar symptoms in the past. Patient was noted to have an O2 saturation of 79% on room air at home by EMS. EMS applied a CPAP machine and the patient's saturations improved. Historical: - Allergies: 11/11 23:17 No Known Allergies; lg3 - Home Meds: 23:17 Entresto oral [Active]; Farxiga oral [Active]; Furosemide Oral [Active]; Potassium lg3 Chloride Oral [Active]; Metoprolol Tartrate Oral [Active]; Allopurinol Oral [Active]; Protonix Oral [Active]; sertraline oral [Active]; Eliquis oral [Active]; - PMHx: 23:17 CHF; AFIB; lg3 - PSHx: 23:17 defib placement; lg3 - Immunization history:: Adult Immunizations up to date, Client reports receiving the 2nd dose of the Covid vaccine. - Social history:: Smoking status: Patient denies any tobacco usage or history of. Patient uses alcohol, occasionally. ROS: 11/12 01:26 Constitutional: Negative for fever, chills, and weight loss, Eyes: Negative for injury, kdr pain, redness, and discharge, Neck: Negative for injury, pain, and swelling, Cardiovascular: Negative for chest pain, palpitations, and edema, Abdomen/GI: Negative for abdominal pain, nausea, vomiting, diarrhea, and constipation, Back: Negative for injury and pain, : Negative for injury, bleeding, discharge, and swelling, MS/Extremity: Negative for injury and deformity, Skin: Negative for injury, rash, and discoloration, Neuro: Negative for headache, weakness, numbness, tingling, and seizure activity. Psych: Negative for depression, anxiety, suicide ideation, homicidal ideation, and hallucinations, Allergy/Immunology: Negative for hives, rash, and allergies, Endocrine: Negative for neck swelling, polydipsia, polyuria, polyphagia, and marked weight changes, Hematologic/Lymphatic: Negative for swollen nodes, abnormal bleeding, and unusual bruising. Respiratory: Positive for dyspnea on exertion, shortness of breath, at rest. Negative for pleurisy, sputum production. Exam: 01:26 Constitutional: This is a well developed, well nourished patient who is awake, alert, kdr and in no acute distress. Head/Face: Normocephalic, atraumatic. Eyes: Pupils equal round and reactive to light, extra-ocular motions intact. Lids and lashes normal. Conjunctiva and sclera are non-icteric and not injected. Cornea within normal limits. Periorbital areas with no swelling, redness, or edema. Neck: Trachea midline, no thyromegaly or masses palpated, and no cervical lymphadenopathy. Supple, full range of motion without nuchal rigidity, or vertebral point tenderness. No Meningismus. Chest/axilla: Normal chest wall appearance and motion. Nontender with no deformity. No lesions are appreciated. Cardiovascular: Regular rate and rhythm with a normal S1 and S2. No gallops, murmurs, or rubs. Normal PMI, no JVD. No pulse deficits. Abdomen/GI: Soft, non-tender, with normal bowel sounds. No distension or tympany. No guarding or rebound. No evidence of tenderness throughout. Back: No spinal tenderness. No costovertebral tenderness. Full range of motion. Skin: Warm, dry with normal turgor. Normal color with no rashes, no lesions, and no evidence of cellulitis. MS/ Extremity: Pulses equal, no cyanosis. Neurovascular intact. Full, normal range of motion. Neuro: Awake and alert, GCS 15, oriented to person, place, time, and situation. Cranial nerves II-XII grossly intact. Motor strength 5/5 in all extremities. Sensory grossly intact. Cerebellar exam normal. Normal gait. Psych: Awake, alert, with orientation to person, place and time. Behavior, mood, and affect are within normal limits. Vital Signs: 11/11 23:12 BP 150 / 79; Pulse 74; Resp 19; Temp 98.2(A); Pulse Ox 98% ; Weight 108.86 kg (R); lg3 Height 6 ft. 1 in. (185.42 cm) (R); Pain 0/10; 23:53 BP 148 / 87; Pulse 74; Resp 17; Pulse Ox 100% ; lg3 11/12 00:50 BP 153 / 87; Pulse 69; Resp 17; Pulse Ox 100% on 4 lpm NC; lg3 04:46 BP 169 / 87; Pulse 77; Resp 12; Pulse Ox 96% on R/A; oe 11/11 23:12 Body Mass Index 31.66 (108.86 kg, 185.42 cm) lg3 MDM: 01:24 Patient medically screened. kdr 01:26 Data reviewed: vital signs, nurses notes, lab test result(s), radiologic studies. kdr Counseling: I had a detailed discussion with the patient and/or guardian regarding: the historical points, exam findings, and any diagnostic results supporting the discharge/admit diagnosis, lab results, radiology results, the need for outpatient follow up. 11/11 23:41 Order name: Basic Metabolic Panel; Complete Time: 01:38 kdr 11/11 23:41 Order name: CBC with Diff; Complete Time: 00:30 kdr 11/11 23:41 Order name: Troponin HS; Complete Time: 01:38 kdr 11/11 23:42 Order name: COVID-19 SARS RT PCR (Document "Date of Onset" if Symptomatic) tw5 11/11 23:42 Order name: BNP; Complete Time: 01:38 la1 11/12 07:46 Order name: Glucose, Ancillary Testing EDMS 11/11 23:41 Order name: XRAY Chest (1 view) kdr 11/11 23:41 Order name: EKG; Complete Time: 23:42 kdr 11/11 23:41 Order name: Cardiac monitoring; Complete Time: 23:51 kdr 11/11 23:41 Order name: EKG - Nurse/Tech; Complete Time: 23:51 kdr 11/11 23:41 Order name: IV Saline Lock; Complete Time: 23:51 kdr 11/11 23:41 Order name: Labs collected and sent; Complete Time: 23:51 kdr 11/12 11:44 Order name: Glucose, Ancillary Testing EDMS 11/11 23:41 Order name: O2 Per Protocol; Complete Time: 23:51 kdr 11/11 23:41 Order name: O2 Sat Monitoring; Complete Time: 23:51 kdr Administered Medications: 02:18 Drug: Lasix (furosemide) 40 mg Route: IVP; Site: right forearm; tw5 02:18 Follow up: Response: No adverse reaction tw5 Disposition Summary: 11/12/21 01:26 Hospitalization Ordered Hospitalization Status: Observation kdr Provider: Pa Bo kdr Condition: Stable(11/12/21 01:26) kdr Problem: an acute exacerbation(11/12/21 01:26) kdr Symptoms: have improved(11/12/21 01:26) kdr Bed/Room Type: Standard kdr Location: [facility] ER HOLD(11/12/21 01:33) Room Assignment: ERHOLD-(11/12/21 01:33) mw Diagnosis - Heart failure, unspecified(11/12/21 01:26) kdr - Dyspnea(11/12/21 01:26) kdr Forms: - Medication Reconciliation Form kdr - SBAR form kdr Signatures: Dispatcher [employer] EDME Imani Harvey RN RN Carlos Power MD MD kdr Jon Glover FNP-C FOOD AND NUTRITION SUPERVISOR-Cla1 Lizbeth Polanco RN RN lg3 Luba Vizcarra tw5 Corrections: (The following items were deleted from the chart) 01:24 01:24 Home kdr kdr 01:24 01:24 new kdr kdr 01:24 01:24 have improved kdr kdr 01:24 01:24 Stable kdr kdr 01:24 01:24 Shortness of breath kdr kdr 01:24 01:24 Dyspnea kdr kdr 01:24 01:24 Heart failure, unspecified kdr kdr :33 01:26 Telemetry/MedSurg (observation) kdr : 01:26 kdr mw
--- NOTE | 2021-11-12 01:25 | ER ---
Nurse's Notes [facility] Name: Balbir Calabrese Age: 71 yrs Sex: Male : 1950 Arrival Date: 11/11/2021 Time: 23:12 Bed 13 Private MD: Diagnosis: Heart failure, unspecified;Dyspnea Presentation: 11/11 23:12 Chief complaint: EMS states: called out for SOB on side of road. 79% on room air. cpap lg3 applied. 99-100%. HTN present. accessory muscle use. bilateral ronchi. HX. CHF. Coronavirus screen: Client denies travel out of the [place] in the last 14 days. At this time, the client does not indicate any symptoms associated with coronavirus-19. Ebola Screen: No symptoms or risks identified at this time. Initial Sepsis Screen: Does the patient meet any 2 criteria? No. Patient's initial sepsis screen is negative. Does the patient have a suspected source of infection? No. Patient's initial sepsis screen is negative. Risk Assessment: Do you want to hurt yourself or someone else? Patient reports no desire to harm self or others. Onset of symptoms was November 11, 2021. 23:12 Method Of Arrival: EMS: [facility] lg3 23:12 Acuity: ARY 2 lg3 Triage Assessment: 23:17 General: Appears in no apparent distress. uncomfortable, Behavior is calm, cooperative. lg3 Pain: Denies pain. EENT: No deficits noted. No signs and/or symptoms were reported regarding the EENT system. Neuro: No deficits noted. [place] Agitation-Sedation Scale (RASS): 0 - Alert and Calm Level of Consciousness is awake, alert, obeys commands, Oriented to person, place, time, situation. Cardiovascular: No deficits noted. Reports shortness of breath, Denies chest pain, Capillary refill < 3 seconds Clubbing of nail beds is absent JVD is absent Patient's skin is warm and dry. Respiratory: Reports shortness of breath cough that is Patient placed CPAP: Breath sounds with rhonchi bilaterally. GI: No deficits noted. No signs and/or symptoms were reported involving the gastrointestinal system. Abdomen is round non-distended. : No deficits noted. No signs and/or symptoms were reported regarding the genitourinary system. Derm: No deficits noted. No signs and/or symptoms reported regarding the dermatologic system. Skin is intact, is healthy with good turgor, Skin is dry, Skin is pink, warm \\T\\ dry. Musculoskeletal: No deficits noted. No signs and/or symptoms reported regarding the musculoskeletal system. Circulation, motion, and sensation intact. Range of motion: intact in all extremities. Historical: - Allergies: 23:17 No Known Allergies; lg3 - Home Meds: 23:17 Entresto oral [Active]; Farxiga oral [Active]; Furosemide Oral [Active]; Potassium lg3 Chloride Oral [Active]; Metoprolol Tartrate Oral [Active]; Allopurinol Oral [Active]; Protonix Oral [Active]; sertraline oral [Active]; Eliquis oral [Active]; - PMHx: 23:17 CHF; AFIB; lg3 - PSHx: 23:17 defib placement; lg3 - Immunization history:: Adult Immunizations up to date, Client reports receiving the 2nd dose of the Covid vaccine. - Social history:: Smoking status: Patient denies any tobacco usage or history of. Patient uses alcohol, occasionally. Screenin:52 Abuse screen: Denies threats or abuse. Denies injuries from another. Nutritional lg3 screening: No deficits noted. Tuberculosis screening: No symptoms or risk factors identified. Fall Risk None identified. Assessment: 23:23 General: see triage assessment . lg3 Vital Signs: 23:12 BP 150 / 79; Pulse 74; Resp 19; Temp 98.2(A); Pulse Ox 98% ; Weight 108.86 kg (R); lg3 Height 6 ft. 1 in. (185.42 cm) (R); Pain 0/10; 23:53 BP 148 / 87; Pulse 74; Resp 17; Pulse Ox 100% ; lg3 11/12 00:50 BP 153 / 87; Pulse 69; Resp 17; Pulse Ox 100% on 4 lpm NC; lg3 04:46 BP 169 / 87; Pulse 77; Resp 12; Pulse Ox 96% on R/A; oe 11/11 23:12 Body Mass Index 31.66 (108.86 kg, 185.42 cm) lg3 ED Course: 11/11 23:12 Patient arrived in ED. 23:12 Lizbeth Polanco, RN is Primary Nurse. lg3 23:17 Carlos Power MD is Attending Physician. kdr 23:17 Triage completed. lg3 23:17 Arm band placed on right wrist. lg3 23:51 Basic Metabolic Panel Sent. lg3 23:51 CBC with Diff Sent. lg3 23:52 Patient has correct armband on for positive identification. Bed in low position. Call lg3 light in reach. Side rails up X2. Client placed on continuous cardiac and pulse oximetry monitoring. NIBP monitoring applied. nurse monitoring on. Door closed. Noise minimized. Warm blanket given. Family accompanied patient. 23:52 Troponin HS Sent. lg3 23:52 BNP Sent. lg3 23:52 Inserted saline lock: 20 gauge in right forearm, using aseptic technique. Blood lg3 collected. 11/12 00:05 COVID-19 SARS RT PCR (Document "Date of Onset" if Symptomatic) Sent. oe 00:11 XRAY Chest (1 view) In Process Unspecified. EDMS 01:24 Pa Bo MD is Hospitalizing Provider. kdr 02:43 No provider procedures requiring assistance completed. Patient admitted, IV remains in tw5 place. intact, No redness/swelling at site. Administered Medications: 02:18 Drug: Lasix (furosemide) 40 mg Route: IVP; Site: right forearm; tw5 02:18 Follow up: Response: No adverse reaction tw5 Medication: 11/11 23:53 VIS not applicable for this client. lg3 Outcome: 11/12 01:24 Discharge ordered by . kdr 01:26 Decision to Hospitalize by Provider. kdr 02:43 Admitted to ER Hold. Please see [facility] for further documentation. tw5 02:43 Condition: stable 02:43 Instructed on the need for admit. 13:20 Patient left the ED. tw2 Signatures: Dispatcher [employer] EDMS Carlos Power MD MD kdr Yary Dave RN RN tw2 Phill Woods Lacie, HAYES RN lg3 Vinita Roach Tiffany tw5
[2021-11-12] MEDS ORDERED: FUROSEMIDE 20 MG/ 2ML VIAL ONE (02:14)
[2021-11-12] MEDS ORDERED: FUROSEMIDE 40 MG/4 ML VIAL ONE ×2 (02:17→08:02)
--- NOTE | 2021-11-12 02:23 | P.HP ---
Certification for Inpatient Patient admitted to: Observation With expected LOS: <2 Midnights Patient will require the following post-hospital care: None Practitioner: I am a practitioner with admitting privileges, knowledge of patient current condition, hospital course, and medical plan of care. Services: Services provided to patient in accordance with Admission requirements found in Title 42 Section 412.3 of the Code of Federal Regulations Patient History Date of Service: 11/12/21 Reason for admission: CHF exacerbation History of Present Illness: 71-year-old male with history of chronic systolic congestive heart failure, atrial fibrillation on chronic anticoagulation therapy, diabetes mellitus type 2not insulin-dependent, hypertension, CKD 3 presents emergency department for dyspnea. Patient reports that he was resting in bed when he woke up suddenly very short of breath and did not get better EMS was called he was found to be hypoxic on room air satting 79% he was placed on CPAP and transported emergency department. In route he was given a dose of nitroglycerin which significantly improved his symptoms during her stay in the emergency department he was taken off of BiPAP and placed on nasal cannula and has been doing well on nasal cannula since his labs are significant for elevated BNP, mild leukocytosis stable CKD 3 chest x-ray showed pulmonary vascular congestion. Patient reports he feels as if his Lasix has not been working as well having less urinary output the last few days increased abdominal swelling he was given a dose of Lasix IV in the emergency department ED prior wishes to admit under observation for suspected CHF exacerbation. Allergies No Known Drug Allergies Allergy (Verified 07/05/21 18:11) Rash Home Medications: Aspirin [Aspirin EC 81 MG] 81 mg PO DAILY 07/06/21 Insulin Glargine,Hum.rec.anlog [Lantus] 38 unit SQ BEDTIME 07/06/21 Sertraline [Zoloft*] 25 mg PO DAILY 07/06/21 Tamsulosin [Flomax*] 0.4 mg PO BEDTIME 07/06/21 allopurinoL [Allopurinol] 100 mg PO DAILY 07/06/21 Apixaban [Eliquis] 5 mg PO BID #60 tablet 07/07/21 Cefuroxime [Ceftin] 250 mg PO BID 7 Days #14 tab 07/07/21 Furosemide [Lasix] 40 mg PO BIDL #60 tab 07/07/21 Meclizine HCl 12.5 mg PO BID PRN #5 tablet 07/07/21 Metoprolol Tartrate 50 mg PO BID #60 tablet 07/07/21 - Past Medical/Surgical History Diabetic: Yes -: Systolic CHF-with pacemaker -: A. fib -: DM2 -: Hypertension -: Hyperlipidemia -: CAD with CABG -: CKD 3 -: CABG -: bilateral knee surgery -: back surgery Psychosocial/ Personal History: Patient lives at home with his - Family History Family History: Reviewed- Non-Contributory - Social History Smoking Status: Never smoker Alcohol use: Yes CD- Drugs: No Caffeine use: Yes Place of Residence: Home Review of Systems 10-point ROS is otherwise unremarkable Respiratory: Shortness of Breath, As per HPI Physical Examination - Physical Exam General: Alert, In no apparent distress, Oriented x3 HEENT: Atraumatic, PERRLA, Mucous membr. moist/pink, EOMI, Sclerae nonicteric Neck: Supple, 2+ carotid pulse no bruit, No LAD, Without JVD or thyroid abnormality Respiratory: Diminished, Crackles/rales Cardiovascular: No edema, Normal S1 S2, Irregular heart rate/rhythm (Paced) Capillary refill: <2 Seconds Gastrointestinal: Normal bowel sounds, No tenderness Musculoskeletal: No tenderness Integumentary: No rashes Neurological: Normal speech, Normal strength at 5/5 x4 extr, Normal tone, Normal affect - Studies Laboratory Data (last 24 hrs) 11/11/21 23:54: WBC 13.0 H, Hgb 15.0, Hct 45.0, Plt Count 153 11/11/21 23:54: Sodium 142, Potassium 3.3 L, BUN 16, Creatinine 1.32 H, Glucose 204 H Assessment and Plan - Plan Assessment: Dyspnea secondary to acute on chronic systolic congestive heart failure S/P pacemaker/defibrillator placement Atrial fibrillation on chronic anticoagulation therapy CAD status post CABG Diabetes type [id number] CKD 3 Hypertension Hyperlipidemia Plan: Dyspnea secondary to acute on chronic systolic congestive heart failure S/P pacemaker/defibrillator placement: Continue with Lasix 40 mg IV twice daily, continue other home medications monitor on telemetry wean off of nasal cannula as tolerated, Entresto continued. Cardiology consult in place. Atrial fibrillation on chronic anticoagulation therapy: Patient in paced rhythm at this time continue Eliquis monitor on telemetry CAD status post CABG: Continue home medications Diabetes type [id number]: ACH S Accu-Chek, sliding scale insulin CKD 3: Continue diuresis for CHF monitor renal function daily Hypertension: Continue home medications Hyperlipidemia: Continue home medications DVT PPX: Continue Eliquis Code status: Full Discharge Plan: Home Plan to discharge in: 24 Hours - Advance Directives Does patient have a Living Will: No Does patient have a Durable POA for Healthcare: No - Code Status/Comfort Care Code Status Assessed: Yes (Full code) Critical Care: No Time Spent Managing Pts Care (In Minutes): 55
[2021-11-12] MEDS ORDERED: ONDANSETRON 4 MG/2 ML VIAL IV PRN (02:24)
[2021-11-12 02:35] VITALS: O2SAT 96; BMI 31.6
[2021-11-12 04:45] VITALS: TEMP 98.2
[2021-11-12] MEDS: INSULIN -REGULAR HUMAN 50 UNIT/0.5 ML ML SQ SCH ×2 (07:30→11:30)
[2021-11-12] MEDS ORDERED: APIXABAN 5 MG TABLET ONE (08:01)
[2021-11-12] MEDS ORDERED: APIXABAN 5 MG TABLET PO SCH (09:00)
[2021-11-12] MEDS ORDERED: FUROSEMIDE 40 MG/4 ML VIAL IV SCH (09:00)
[2021-11-12] MEDS ORDERED: SACUBITRIL/VALSARTAN 24/26 MG TAB PO SCH (09:00)
[2021-11-12] MEDS ORDERED: INSULIN -REGULAR HUMAN 50 UNIT/0.5 ML ML ONE (11:40)
[2021-11-12] MEDS ORDERED: PNEUMOCOCCAL VACCINE 0.5 ML IMVAC ONE (12:00)
--- NOTE | 2021-11-12 12:32 | EKG ---
Test Date: 2021-11-11 Test Time: 23:49:03 Publishing Director: MEASUREMENT RESULTS: Intervals: Rate: 75 [place]: QRSD: 166 QT: 482 QTc: 538 Todd: P: 26 [place]: QRS: 153 T: -21 INTERPRETIVE STATEMENTS: Ventricular-paced rhythm with frequent AV dual-paced complexes in a pattern of bigeminy Abnormal ECG Compared to ECG 07/05/2021 18:01:23 Sinus rhythm no longer present Atrial premature complex(es) no longer present Right-axis deviation no longer present Myocardial infarct finding no longer present Electronically Signed On 11-12-21 12:31:32 CDT by Thony Schneider
[2021-11-12 12:36] VITALS: BP 149/76
--- NOTE | 2021-11-12 13:05 | P.DS ---
Admission Date: 11/12/21 Discharge Date: 11/12/21 Discharge Condition: FAIR Reason for Admission: CHF exacerbation Brief History of Present Illness: History of Present Illness: 71-year-old male with history of chronic systolic congestive heart failure, atrial fibrillation on chronic anticoagulation therapy, diabetes mellitus type 2not insulin-dependent, hypertension, CKD 3 presents emergency department for dyspnea. Patient reports that he was resting in bed when he woke up suddenly very short of breath and did not get better EMS was called he was found to be hypoxic on room air satting 79% he was placed on CPAP and transported emergency department. In route he was given a dose of nitroglycerin which significantly improved his symptoms during her stay in the emergency department he was taken off of BiPAP and placed on nasal cannula and has been doing well on nasal cannula since his labs are significant for elevated BNP, mild leukocytosis stable CKD 3 chest x-ray showed pulmonary vascular congestion. Patient reports he feels as if his Lasix has not been working as well having less urinary output the last few days increased abdominal swelling he was given a dose of Lasix IV in the emergency department ED prior wishes to admit under observation for suspected CHF exacerbation. Allergies No Known Drug Allergies Allergy (Verified 07/05/21 18:11) Rash Home Medications: Aspirin [Aspirin EC 81 MG] 81 mg PO DAILY 07/06/21 Insulin Glargine,Hum.rec.anlog [Lantus] 38 unit SQ BEDTIME 07/06/21 Sertraline [Zoloft*] 25 mg PO DAILY 07/06/21 Tamsulosin [Flomax*] 0.4 mg PO BEDTIME 07/06/21 allopurinoL [Allopurinol] 100 mg PO DAILY 07/06/21 Apixaban [Eliquis] 5 mg PO BID #60 tablet 07/07/21 Cefuroxime [Ceftin] 250 mg PO BID 7 Days #14 tab 07/07/21 Furosemide [Lasix] 40 mg PO BIDL #60 tab 07/07/21 Meclizine HCl 12.5 mg PO BID PRN #5 tablet 07/07/21 Metoprolol Tartrate 50 mg PO BID #60 tablet 07/07/21 - Past Medical/Surgical History Diabetic: Yes -: Systolic CHF-with pacemaker -: A. fib -: DM2 -: Hypertension -: Hyperlipidemia -: CAD with CABG -: CKD 3 -: CABG -: bilateral knee surgery -: back surgery Hospital Course: Hospital course Patient with history of chronic CHF, hypertension, A. fib, admitted for worsening shortness of breath. Patient admits to difficulty with fluid restriction at home. He states he adherent with his home furosemide. On presentation he was noted with CHF exacerbation. He was started on IV Lasix with improvement in his shortness of breath with adequate diuresis. Given patient's difficulty with fluid restriction, bouncing has been prescribed to reduce tendency to fluid intake. His dose of furosemide 40 mg twice daily has been adjusted to Bumex 2 mg twice daily. He is advised to follow-up with his cardiology Dr. Begum in 1 week - Physical Exam General: Alert, In no apparent distress, Oriented x3, on room air HEENT: Atraumatic, PERRLA, Mucous membr. moist/pink, EOMI, Sclerae nonicteric Neck: Supple, 2+ carotid pulse no bruit, No LAD, Without JVD or thyroid abnormality Respiratory: Improving basal crepitations Cardiovascular: No edema, Normal S1 S2, Irregular heart rate/rhythm (Paced) Capillary refill: <2 Seconds Gastrointestinal: Normal bowel sounds, No tenderness Musculoskeletal: No tenderness Integumentary: No rashes Neurological: Normal speech, Normal strength at 5/5 x4 extr, Normal tone, Normal affect Vital Signs/Physical Exam: Temp Pulse Resp BP Pulse Ox 98.2 F 52 19 149/76 H 100 11/12/21 04:00 11/12/21 12:00 11/12/21 12:00 11/12/21 12:00 11/12/21 12:00 Laboratory Data at Discharge: WBC 13.0 K/uL (4.3-10.9) H 11/11/21 23:54 Hgb 15.0 g/dL (13.6-17.9) 11/11/21 23:54 Hct 45.0 % (39.6-49.0) 11/11/21 23:54 Plt Count 153 K/uL (152-406) 11/11/21 23:54 Sodium 142 mmol/L (136-145) 11/11/21 23:54 Potassium 3.3 mmol/L (3.5-5.1) L 11/11/21 23:54 BUN 16 mg/dL (7-18) 11/11/21 23:54 Creatinine 1.32 mg/dL (0.55-1.3) H 11/11/21 23:54 Glucose 204 mg/dL (74-106) H 11/11/21 23:54 Home Medications: Aspirin [Aspirin EC 81 MG] 81 mg PO DAILY 07/06/21 Insulin Glargine,Hum.rec.anlog [Lantus] 38 unit SQ BEDTIME 07/06/21 Sertraline [Zoloft*] 25 mg PO DAILY 07/06/21 Tamsulosin [Flomax*] 0.4 mg PO BEDTIME 07/06/21 allopurinoL [Allopurinol] 100 mg PO DAILY 07/06/21 Apixaban [Eliquis] 5 mg PO BID #60 tablet 07/07/21 Meclizine HCl 12.5 mg PO BID PRN #5 tablet 07/07/21 Metoprolol Tartrate 50 mg PO BID #60 tablet 07/07/21 Bumetanide [Bumex] 2 mg PO BID #60 tablet 11/12/21 Saliva Stimulant Agents Comb.3 [Biotene Moisturizing Mouth] 44.3 ml MM 5XD 30 Days #1 bottle 11/12/21 New Medications: Saliva Stimulant Agents Comb.3 [Biotene Moisturizing Mouth] 44.3 ml MM 5XD 30 Days #1 bottle Bumetanide [Bumex] 2 mg PO BID #60 tablet Physician Discharge Instructions: Fluid restriction to less than 1500 mils per day Diet: Low sodium Activity: Ad rosy Followup: NONE,NONE [Primary Care Provider] - Time spent managing pt's care (in minutes): 35
--- NOTE | 2021-11-12 17:57 | RAD REPORT ---
EXAM DESCRIPTION: RAD - Chest Single View - 11/12/2021 12:07 am CLINICAL HISTORY: 71 years Male, COUGH TECHNIQUE: 1 view (Single frontal view of the chest) COMPARISON: None. FINDINGS: Limited exam secondary to patient's body habitus and portable AP technique. LINES AND TUBES: Left-sided AICD. CARDIOVASCULAR STRUCTURES: Cardiomegaly. Poststernotomy. Mild pulmonary venous congestion versus proj ectional artifact. LUNGS: No confluent areas of acute consolidation. PLEURA: No layering pleural effusions. No pneumothorax. BONES: No acute osseous abnormality of the thorax. IMPRESSION: 1. Mild pulmonary venous congestion versus projectional artifact. 2. Cardiomegaly. Electronically signed by: Kulwinder Lozano MD 11/12/2021 12:34 AM CDT Due to temporary technical issues with the PACS/Fluency reporting system, reports are being signed by the in house radiologists without review as a courtesy to insure prompt reporting. The interpreting radiologist is fully responsible for the content of the report.
--- NOTE | 2021-11-13 07:19 | CON ---
Date of Consultation: 11/12/2021 History Of Present Illness: Mr. Calabrese is 71-year-old, is known to have congestive heart failure, recent AICD placement, being cared for by Dr. Begum. Known ejection fraction of 32% by recent echo . Has paroxysmal atrial fibrillation. Came in with CHF exacerbation with PND, orthopnea, pedal akira a, and shortness of breath. Denied any chest pain. Denied any syncope or fever or chills. Past Medical History: As stated above. Allergies: NONE. Review of Systems: Negative. Social History: Negative. Family History: Noncontributory. Medications: Include, 1.Aspirin. 2.Eliquis. 3.Lasix. 4.Entresto. 5. . 6.Insulin. Physical Examination: Vital Signs: He was actually ambulating in the room. He is not having any symptoms. Has expressed his wishes to go home. He is diuresed well. HEENT: Negative. Neck: Supple with no bruit. Chest: Reveals some rales both bases. Cardiac: Revealed a regular rhythm and rate. No murmurs, gallops, or rubs. Abdomen: Benign. Extremities: Revealed no clubbing, cyanosis. He had 1+ edema. Diagnostic Data: His BNP was 11,000, creatinine is 1.3. Chest x-ray showed mild failure. EKG showe d paced rhythm. Impression And Plan: 1.Acute on chronic systolic congestive heart failure exacerbation. 2.Status post defibrillator. 3.Paroxysmal atrial fibrillation. 4.Diabetes. 5.Hypertension. 6.Renal insufficiency. I think the patient is on Eliquis and the patient needs to continue his Eliquis, Lasix, aspirin, beta ludmila, Entresto, insulin. When he goes home, he needs to double up his Lasix dose. We will now d iurese him gently. He can go home whenever it is okay with Dr. Bo. He will follow up with Dr. Begum in the near future. His defibrillator was just placed a month ago and he should be due for a check in the next 2-3 months. His EKG showed a paced rhythm. No further cardiac workup from our [facility]. JESSENIA/TIANA Voice ID: [id number] Report ID: [id number]
== END 2021-11-12 13:19 | disposition home health service (06) ==
LOC: ER 23:08 → ERHOLD 11-12 01:49
PROVIDERS: ADMIT Internal Medicine; ATTEND Internal Medicine
DX: I13.0 Hypertensive heart and chronic kidney disease with heart failure and stage 1 through stage 4 chronic kidney disease, or unspecified chronic kidney disease (principal); I50.23 Acute on chronic systolic (congestive) heart failure; N18.30 Chronic kidney disease, stage 3 unspecified; E11.22 Type 2 diabetes mellitus with diabetic chronic kidney disease; I48.91 Unspecified atrial fibrillation; I25.10 Atherosclerotic heart disease of native coronary artery without angina pectoris; E78.5 Hyperlipidemia, unspecified; Z79.01 Long term (current) use of anticoagulants; Z79.4 Long term (current) use of insulin; Z79.82 Long term (current) use of aspirin; Z79.899 Other long term (current) drug therapy; Z95.1 Presence of aortocoronary bypass graft; Z95.810 Presence of automatic (implantable) cardiac defibrillator; Z20.822 Contact with and (suspected) exposure to COVID-19
CPT/HCPCS: 36415; 71045; 80048; 82947; 83880; 84484; 85025; 93005; 96374; 99285; G0378; J1815; J1940; U0003